=== PATIENT | female | born 2000 | race Hispanic/Latino ===

== ENCOUNTER 2025-07-31 18:11 | Emergency (ER) | payer BC, SELFPAY ==
[2025-07-31 18:12] VITALS: BP 142/81
--- NOTE | 2025-07-31 19:34 | ED.GENMED ---
History of Present Illness
General
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
Source: patient
Time Seen by Provider: 07/31/25 19:02
History of Present Illness
History of Present Illness:
24-year-old female presenting to the emergency department for evaluation after she was having a sexual encounter with a partner and noted that he started to have some bleeding from the penis that entered the vaginal canal, patient concern for
possible STI exposure. She is requesting testing for HIV and hepatitis as well as gonorrhea/chlamydia. Patient without any physical concerns at this time. She notes that the partner she is currently with is a relatively new partner after getting
out of a long-term relationship. She does not know if the patient himself was tested or not.
Past History
Past History
ED Past Medical History: None
ED Past Surgical History: Orthopedic
Social History
Tobacco: Non-smoker
Alcohol: None
Drug: None
Personal: Single
Living: with family
Review of Systems
Review of Systems
All Other Systems: ROS reviewed and negative except as documented in HPI and ROS
Phy Exam
Physical Exam
Physical Exam:
GENERAL: Alert , in no apparent distress
EYE: conjunctiva clear
Head: Normocephalic atraumatic
NECK: Supple,
ENT: mmm.
LUNGS: no acute respiratory distress
NEUROLOGICAL: Alert and oriented
SKIN: Warm and dry, skin intact.
MUSCULOSKELETAL: well perfused.
PSYCH: Normal and appropriate interaction.
Scores
Heart Failure Risk
Heart Failure Risk Score: Not Applicable
Heart Score for Chest Pain Patients
STEMI patient?: Not applicable
Withdrawal Assessment of Alcohol
Withdrawal Assessment Completed?: Not applicable
Course
Orders/Labs/Results
Orders:
Orders
07/31/25 19:36
HIV Combo Urgent
Hepatitis B Core Ab, IgM Urgent
Hepatitis B Surface Antibody Urgent
Hepatitis B Surface Antigen Urgent
Hepatitis C Antibody Urgent
Chlamydia/GC by PCR Urgent
[place] Source: Urine
Specimen Description:
Source:: URINE
Date Specimen was Collected: 07/31/25
Time Specimen was Collected: 19:33
Vital Signs
Initial and Last Documented VS:
Initial Vital Signs
Temp Pulse Resp BP Pulse Ox
98.3 F 81 16 142/81 100
07/31/25 18:12 07/31/25 18:12 07/31/25 18:12 07/31/25 18:12 07/31/25 18:12
Last Documented Vital Signs
Temp Pulse Resp BP Pulse Ox
98.3 F 81 16 142/81 100
07/31/25 18:12 07/31/25 18:12 07/31/25 18:12 07/31/25 18:12 07/31/25 19:35
MDM/Problems Addressed
MDM/Problems Addressed:
24-year-old female presenting to the ER for evaluation after possible STI exposure. Patient without any symptoms. I did explain to the patient that given her encounter only occurred 2 weeks ago it would be exceptionally unlikely that there would
already be any seroconversion if she did have any exposure to HIV/hepatitis. Will still obtain these labs for screening purposes as well as gonorrhea/chlamydia. I did advise patient she would likely need repeat testing over a 3 6 and 12-month
timeline as well as strongly encouraged patient to discuss this with her partner and have her get tested as well. Patient expressed understanding, felt comfortable being discharged home. Aware of return precautions to the ER.
*Pulse Oximetry
SaO2: 100
Oxygen Mode of Delivery: Room air
Patient hypoxic: no
*Critical Care Note
Total Time (30-74mins, 75-104mins- exclusive of procedures): Not Applicable
ED Attending Note
-
Portions of this chart may have been created with voice recognition software.� Occasional wrong word or��sound alike� substitutions may have occurred due to the inherent limitations of voice recognition software.
Discharge Plan
Departure
Patient Disposition: Home (Routine Discharge)
Date of Disposition: 07/31/25
Time of Disposition: 19:34
Patient with high blood pressure during this ER visit?: No
Discharge Problem:
Screening examination for STD (sexually transmitted disease)
Instructions: Sexually transmitted infections
Referrals:
MATTHEW WAGGONER [Other]
Interventions
Interventions:
*Risk Screen - Suicide Last Done: 07/31/25 18:13
*General Assessment Last Done: 07/31/25 19:50
*Neglect/Abuse Screening Last Done: 07/31/25 18:13
*ED- Fall Risk Assessment Last Done: 07/31/25 19:50
*ED COVID-19 Vaccine History Last Done: 07/31/25 19:50
*ED Influenza Vaccine History Last Done: 07/31/25 19:50
*Nursing Disposition Last Done: 07/31/25 19:50
ED-Female Genitourinary Assessment Last Done: 07/31/25 19:50
Discharge Date and Time
Discharge Date/Time: 07/31/25 19:51
Print Language: ALBANIAN
== END 2025-07-31 19:51 | disposition home or self-care (01) ==
LOC: EMR 18:11
PROVIDERS: Physician Assistant Medical; EMERGENCY PHYSICIAN Emergency Medicine
DX: Z11.3 Encounter for screening for infections with a predominantly sexual mode of transmission (principal)
CPT/HCPCS: 99283; 86705; 86706; 86803; 87340; 87389; 87491; 87591